=== PATIENT | male | born 1940 | race Caucasian/White ===

== ENCOUNTER 2017-10-26 08:54 | Inpatient (IN) | payer OTHER ==
[~2017-10-26] VITALS: Ht 160 cm; Wt 79.8 kg
[~2017-10-26 08:54] MED LIST: AMOX1TAB5 PO; HYOSCYAMINE0.125 M1 SL; IMODIUM A-D2 MG PO; INTESTINEX1 CA1 PO; Levsin/Sl 0.125 MG TAB.SUBL SL; OXYC1TAB9 PO; PROTONIX20 MG; PROTONIX40 MG PO; VERAPAMIL ER120 MG
== END 2017-11-01 08:22 | disposition designated cancer center or children's hospital (05) | DRG 291 ==
LOC: ER 08:54 → MEDI 17:37 → SEC-K 17:37 → MEDI 10-27 16:39
PROC: 4A033R1 Measurement of Arterial Saturation, Peripheral, Percutaneous Approach (ICD-10-PCS; principal; 2017-10-26)
PROC: B246ZZZ Ultrasonography of Right and Left Heart (ICD-10-PCS; 2017-10-26)
PROC: BW24ZZZ Computerized Tomography (CT Scan) of Chest and Abdomen (ICD-10-PCS; 2017-10-27)
PROC: BW40ZZZ Ultrasonography of Abdomen (ICD-10-PCS; 2017-10-27)
PROC: 4A12X4Z Monitoring of Cardiac Electrical Activity, External Approach (ICD-10-PCS; 2017-10-27)
PROC: B54MZZZ Ultrasonography of Right Upper Extremity Veins (ICD-10-PCS; 2017-10-28)
DX: I11.0 Hypertensive heart disease with heart failure (principal); J18.9 Pneumonia, unspecified organism; I48.3 Typical atrial flutter; N17.8 Other acute kidney failure; C20 Malignant neoplasm of rectum; I47.1 Supraventricular tachycardia; I50.23 Acute on chronic systolic (congestive) heart failure; E86.0 Dehydration; I34.0 Nonrheumatic mitral (valve) insufficiency; R09.02 Hypoxemia

== ENCOUNTER 2018-01-31 06:10 | Day surgery (SDC) | payer OTHER | END 2018-01-31 09:25 | disposition home or self-care (01) | LOC: AMB-ENDOS 06:10 | DX: K57.30 Diverticulosis of large intestine without perforation or abscess without bleeding (principal) ==

== ENCOUNTER 2018-06-29 21:51 | Inpatient (IN) | payer OTHER ==
[~2018-06-29] VITALS: Ht 160 cm; Wt 72.6 kg
[2018-06-30] MEDS ORDERED: LEVSIN/SL0.125 MG (11:03)
== END 2018-07-01 10:37 | disposition home or self-care (01) | DRG 390 ==
LOC: ER 21:51 → SURH 23:32
DX: K56.690 Other partial intestinal obstruction (principal); I10 Essential (primary) hypertension; Z85.038 Personal history of other malignant neoplasm of large intestine